=== PATIENT | male | born 1950 | race Caucasian/White ===

== ENCOUNTER 2019-11-28 01:39 | Outpatient (CLI) | payer MEDICARE, SELFPAY ==
[2019-11-28 17:56] LABS: SARS-CoV-2 RNA PCR Negative
== END 2019-11-28 01:40 | disposition home or self-care (01) ==
LOC: ANHCOVIDDT 01:40
PROVIDERS: PCP Internal Medicine; Visit Provider Internal Medicine Gastroenterology
DX: Z01.812 Encounter for preprocedural laboratory examination (principal); Z11.59 Encounter for screening for other viral diseases
CPT/HCPCS: 87635; C9803; U0003

== ENCOUNTER 2019-11-30 02:16 | Day surgery (SDC) | payer MEDICARE, SELFPAY ==
[2019-11-20 14:02] VITALS: BMI 32.5
[2019-11-30] MEDS: LACTATED RINGERS 1,000 ML 150 ML IV CONT (08:33)
[2019-11-30 08:34] VITALS: BP 145/91; PULSE 82; RESP 16; TEMP 36.3; O2SAT 99; BMI 31.7
--- NOTE | 2019-11-30 08:41 | P.CONGI_ITS ---
Assessment and Plan Assessment and plan (1) Encounter for screening for colorectal malignant neoplasm: Code(s): Z12.11 - Encounter for screening for malignant neoplasm of colon; Z12.12 - Encounter for screening for malignant neoplasm of rectum Status: Acute Assessment and Plan: Patient presents for screening colonoscopy. He appears to be at average risk. Last colonoscopy was 15 years ago. Plan is for screening colonoscopy today. (2) Dyspepsia: Code(s): R10.13 - Epigastric pain Status: Acute Assessment and Plan: Patient is epigastric pain consistent with dyspepsia. He has had inadequate response so far to pantoprazole. Plan is to proceed with EGD to evaluate more thoroughly. GI Consult Note Consult date/time: 11/30/19 08:41 HPI: Norman Staton is a 68 year old male Seen in evaluation at the request of Dr. Evangelista Carrasco. Patient complains of epigastric pain for several months. This is improved a little bit on taking pantoprazole but is not totally relieved. He also stop meloxicam which was taken for neck pain. He is not take this medicine for several weeks. Pain persists despite this med occasion. He denies any bleeding or weight loss. Food is nonspecifically aggravate or alleviate the discomfort. Patient presents for EGD to evaluate thoroughly today. Past medical history is significant for colonoscopy 15 years ago. Patient desires neoplasia screening. He did states his current weight appetite bowel movements are normal. Denies abdominal pain. He denies blood in his stools. His weight has remained stable. Family history is noncontributory. There is no family history of colon or rectal disease. Review of Systems Review of Systems: All systems reviewed & are unremarkable except as noted in HPI and below Meds Home Medications and Allergies Home Medications Medication Instructions Recorded Confirmed Type atorvastatin 20 mg PO DAILY 11/20/19 11/20/19 History Allergies Allergy/AdvReac Type Severity Reaction Status Date / Time No Known Allergies Allergy Unverified 09/27/18 09:39 Vital Signs Vital Signs - 24 hr 11/30/19 08:34 Temperature 97.3 F L Pulse Rate 82 Respiratory Rate 16 Blood Pressure 145/91 H Pulse Oximetry 99 Exam Narrative: Exam Narrative: Physical exam reveals the patient to be alert. Vital signs are stable. He is comfortable at rest. HEENT exam unremarkable. L ungs are clear to auscultation and percussion. Heart is without murmur or extra sounds. Abdominal exam bowel sounds are present soft nontender with no organomegaly. Digital external rectal exam is normal.
--- NOTE | 2019-11-30 09:05 | P.PNAN_ITS ---
Anes - Initial Pre Proc Eval Procedure: Operation Date: 11/30/19 09:00 Proposed Procedures p Screening Colonoscopy And Possible Esophagogastroduodenoscopy - Rk Rojas MD Date/Time: 11/30/19 09:05 Surgeon: Rk Rojas MD Pre Op Diagnosis: Neoplasm Screening, Dyspepsia Patient Data Age: 68 Gender: M Height: 6 ft 2 in Weight: 112.1 kg Last Vital Signs Temp 97.3 F L 11/30/19 08:34 Pulse 82 11/30/19 08:34 Resp 16 11/30/19 08:34 BP 145/91 H 11/30/19 08:34 Pulse Ox 99 11/30/19 08:34 Allergies Allergy/AdvReac Type Severity Reaction Status Date / Time No Known Allergies Allergy Unverified 09/27/18 09:39 Home Medications Medication Instructions Recorded Confirmed Type atorvastatin 20 mg PO DAILY 11/20/19 11/20/19 History Patient hx anesthesia problems: none Family hx anesthesia problems: none [facility] Past Medical History Medical History (Updated 11/30/19 @ 09:05 by Job Garcia MD) Arthritis Hyperlipidemia Anes - Eval Final PreProcedure Day of Procedure 11/30/19 09:05 Patient weight: overweight Heart: regular rate and rhythm Lungs: clear to auscultation Airway: Mallampati scale class II Neurological: alert and oriented Last oral intake: >/= 8 hours ASA classification: II Emergent: no Anesthetic plan: proceed Anesthesia type and monitoring: general GIVS and standard monitoring Informed Consent: The patient's anesthetic plan and its attendant risks and benefits were discussed with the patient/family/POA. Questions were solicited and answers provided to the satisfaction of the patient/family/POA.
[2019-11-30 09:50] VITALS: BP 97/54; PULSE 82; RESP 16; O2SAT 93
[2019-11-30 10:00] VITALS: BP 99/66; PULSE 60; RESP 16; O2SAT 93
[2019-11-30 10:10] VITALS: BP 108/61; PULSE 60; RESP 16; O2SAT 96
== END 2019-11-30 10:19 | disposition home or self-care (01) ==
PROVIDERS: PCP Internal Medicine; Visit Provider Internal Medicine Gastroenterology
PROC: 0DJ08ZZ Inspection of Upper Intestinal Tract, Via Natural or Artificial Opening Endoscopic (ICD-10-PCS; CPT 43235; principal; 2019-11-30 09:00)
DX: Z12.11 Encounter for screening for malignant neoplasm of colon (principal); K57.30 Diverticulosis of large intestine without perforation or abscess without bleeding; K64.8 Other hemorrhoids; K30 Functional dyspepsia; E78.5 Hyperlipidemia, unspecified
CPT/HCPCS: 43239; G0121; 87081; J2704; J7120

== ENCOUNTER 2020-08-27 08:11 | Emergency (ER) | payer MEDICARE, SELFPAY ==
[2020-08-27] VITALS (13 sets, daily range): BP systolic 125–157; BP diastolic 82–96; PULSE 61–68; RESP 11–18; TEMP 36.2–36.7; O2SAT 96–100
--- NOTE | ~2020-08-27 | CT_ITS ---
EXAMINATION: CT brain wo con DATE: 08/27/2020 09:47 INDICATION: Paresthesias TECHNIQUE: Computed tomography (CT) of the head was performed without intravenous contrast. The dose- length product was 605.33 mGy-cm. Automated exposure control and iterative reconstruction technique w ere employed. COMPARISON: None FINDINGS: Generalized atrophy. No acute intracranial hemorrhage, infarction, mass or mass effect. Bas ilar cisterns are patent. Normal avina-white differentiation. Paranasal sinuses and mastoids are pneum atized. No depressed skull fractures. IMPRESSION: 1. No acute intracranial abnormality. Reviewed, dictated and finalized at location B.
--- NOTE | 2020-08-27 08:47 | ECG_ITS ---
Measurements Intervals [place] Rate: 64 P: 39 NH: 146 QRS: 41 QRSD: 142 T: 4 QT: 425 QTc: 441 Interpretive Statements SINUS RHYTHM RIGHT BUNDLE BRANCH BLOCK BASELINE ARTIFACT- I, II, III, AVR, AVL,A VF ABNORMAL ECG Electronically Signed On 08-27-2020 8:53:06 CDT by Keyur Logan D.O.
[2020-08-27 09:30] LABS: Basophils Percent Auto 0.7 % (0.2-1.2); Eosinophils Absolute Auto 0.1 K/mm3 (0-0.3); Eosinophils Percent Auto 1.6 % (0-4.4); Hematocrit 44.8 % (42.0-52.0); Hemoglobin 15.2 g/dL (14.0-18.0); Immature Granulocyte Absolute 0.01 K/mm3 (0.00-0.031); Immature Granulocyte Percent A 0.2 % (0-0.5); Lymphocytes Absolute Auto 1.81 K/mm3 (0.9-3.2); Lymphocytes Percent Auto 32.8 % (18.3-44.2); Mean Corpuscular HGB Conc 33.9 g/dl (32-36); Mean Corpuscular Hemoglobin 33.2 pg (26-34); Mean Corpuscular Volume 97.8 fl (80-100); Mean Platelet Volume 11.1 fl (7.4-10.4); Monocytes Absolute Auto 0.5 K/mm3 (0.1-0.6); Monocytes Percent Auto 9.3 % (2.6-8.5); Neutrophils Absolute Auto 3.1 K/mm3 (1.3-6.7); Neutrophils Percent Auto 55.4 % (45.5-73.1); Platelet Count Result 227 k/mm3 (150-375); Red Blood Count 4.58 M/mm3 (4.6-6.20); Red Cell Distribution Width 12.2 % (11.5-14.5); White Blood Count 5.5 K/mm3 (4.5-10.0)
--- NOTE | 2020-08-27 09:33 | ED.GENADULT ---
HPI - General Adult General Chief complaint: Unspecified Stated complaint: TINGLING Time Seen by Provider: 08/27/20 09:11 Source: patient Mode of arrival: EMS Limitations: no limitations History of Present Illness HPI narrative: This is a 69 year old male that presents to the ER for an episode of paresthesias this morning. Reports around 7:00 he started to note tingling in his arms. Following that he felt like his legs were really weak. He was anxious and felt panicky. He told his he wanted to come to the emergency department. Reports a similar episode last week for which she was seen at another facility. Reports he had lab work and a chest x-ray that apparently was normal. Denies any symptoms currently. Reports he has been having intermittent dull pains on the right side of his upper chest. Denies fever, vision changes, shortness of breath, vomiting, numbness, or lower extremity edema. Related Data Home Medications Medication Instructions Recorded Confirmed No Home Medications 08/27/20 08/27/20 Allergies Allergy/AdvReac Type Severity Reaction Status Date / Time No Known Allergies Allergy Verified 08/27/20 08:16 Review of Systems Review of Systems: Narrative: CONSTITUTIONAL: Denies fever EYES: Denies visual changes CARDIOVASCULAR: Reports chest pain. Denies edema. RESPIRATORY: Denies cough or dyspnea. GASTROINTESTINAL: Denies abdominal pain, nausea, vomiting GENITOURINARY: Denies dysuria NEUROLOGIC: Reports weakness. Denies headache, numbness All systems reviewed & are unremarkable except as noted in HPI and below PMFSH Past Medical History Medical History (Updated 08/27/20 @ 14:30 by Valencia Gu PA-C) Arthritis History of gastroesophageal reflux (GERD) Hyperlipidemia Exam Narrative: Exam Narrative: GENERAL: Well-appearing, well-nourished, and in no acute distress. HEAD: Normocephalic, atraumatic. EYES: PERRLA and EOMI. ENT: Nares clear, no rhinorrhea or epistaxis. Mucous membranes moist. Oropharynx without tonsillar hypertrophy exudate or other lesions. Bilateral TMs pearly avina non-bulging NECK: Supple. No adenopathy or masses. CHEST: Clear to auscultation. No respiratory distress. No wheezes rales or rhonchi HEART: Regular rate and rhythm. No murmur heard. Normal peripheral pulses. EXTREMITIES: Normal range of motion. No edema. Strength equal in bilateral upper and lower extremities (5/5) SKIN: Warm, dry, no rash. NEURO: No focal deficits. Alert and oriented x3. Cranial nerves II through XII grossly intact. Normal [id number] PSYCH: Normal mood and affect Course Vital Signs Vital signs: Vital Signs Temperature 97.1 F L 08/27/20 08:11 Pulse Rate 68 08/27/20 08:11 Respiratory Rate 14 08/27/20 08:11 Blood Pressure 157/95 H 08/27/20 08:11 Pulse Oximetry 100 08/27/20 08:11 Temperature 97.1 F L 08/27/20 08:11 Pulse Rate 62 08/27/20 10:46 Respiratory Rate 15 08/27/20 10:46 Blood Pressure 130/82 08/27/20 10:46 Pulse Oximetry 96 08/27/20 10:46 Medical Decision Making MDM Narrative Medical decision making narrative: Patient presents to the emergency department for an episode that sounds consistent with likely an anxiety attack. Reports this morning he started to feel panicky. Reports paresthesias in his arms, also reports feeling of muscle cramping in his legs. Symptoms had resolved upon arrival to the ED. He is neurologically intact. His vitals are stable. CBC and metabolic panel without concerning findings. Magnesium is normal. TSH is normal. EKG shows a right bundle branch block, no acute ST changes. Baseline and 3-hour troponin are negative. CK is normal. UA without evidence of infection. CT scan of the brain is normal. Spoke with patient's primary about work-up will follow-up in clinic. Patient is stable and felt appropriate for further outpatient evaluation. He was given warnings to return to the ER I did offer patient admission for MRI
[2020-08-27 09:40] LABS: Alanine Aminotransferase 31 U/L (4-50); Albumin Level 4.4 g/dL (3.5-5.1); Alkaline Phosphatase 60 U/L (38-126); Anion Gap 7 mmol/L (8-16); Aspartate Amino Transferase 32 U/L (17-59); Bilirubin,Total 0.6 mg/dL (0.2-1.3); Blood Urea Nitrogen 18 mg/dL (9-20); Calcium 9.1 mg/dL (8.4-10.2); Carbon Dioxide 28 mmol/L (22-30); Chloride 105 mmol/L (98-107); Estimated CRCL calculation 92 ml/min; Estimated Glomerular Filt Rate > 60; Glucose 110 mg/dL (75-110); Magnesium 2.1 mg/dL (1.6-2.3); Potassium 4.1 mmol/L (3.4-5.0); Sodium 140 mmol/L (137-145)
--- NOTE | 2020-08-27 09:41 | PC.NURSE ---
called lab and spoke with carrol. Added on a TSH Reflex
[2020-08-27 10:07] LABS: Partial Thromboplastin Time 26.6 SECONDS (22.3-36.8); Prothrombin Time 13.6 Seconds (11.1-14.7)
[2020-08-27 10:13] LABS: Troponin I < 0.012 ng/mL (0.000-0.034)
[2020-08-27 12:50] LABS: Add Urine Microscopic? YES; Appearance Urine Cloudy (Clear); Bilirubin Urine Negative (Negative); Blood Urine Negative (Negative); Color Urine Yellow (Yellow); Glucose Urine UA Negative (Negative); Ketones Urine Negative (Negative); Leukocyte Esterase Ur Negative LEU/UL (Negative); Mucus Urine Rare /lpf; Nitrate Urine Negative (Negative); Protein Urine Negative (Negative); RBC Urine 0-2 /hpf (0-2); Specific Grav Ur 1.019 (1.001-1.035); Urobilinogen Urine Negative mg/dL (<2.0); WBC Urine 0-3 /hpf
[2020-08-27 12:54] LABS: Creatine Kinase 118 U/L (55-170)
[2020-08-27 14:13] LABS: Troponin I < 0.012 ng/mL (0.000-0.034)
== END 2020-08-27 14:44 | disposition home or self-care (01) ==
PROVIDERS: Physician Assistant; Emergency Provider Emergency Medicine; PCP Internal Medicine
DX: R20.2 Paresthesia of skin (principal); M19.90 Unspecified osteoarthritis, unspecified site; K21.9 Gastro-esophageal reflux disease without esophagitis; E78.5 Hyperlipidemia, unspecified; R07.9 Chest pain, unspecified; I45.10 Unspecified right bundle-branch block
CPT/HCPCS: 36415; 70450; 80053; 81001; 82550; 83735; 84443; 84484; 85025; 85610; 85730; 93005; 99284

== ENCOUNTER 2020-10-08 12:50 | Outpatient (CLI) | payer MEDICARE, SELFPAY ==
--- NOTE | 2020-10-08 12:58 | ECHO_ITS ---
Patient Info Name: Norman Staton Age: 69 years : 1950 Gender: Male Ht: 74 in Wt: 241 lbs BSA: 2.41 m2 HR: 79 bpm BP: 151 / 107 mmHg Technical Quality: Fair Exam Date: 10/08/2020 1:09 PM Exam Location: [facility] Patient Status: Outpatient Admit Date: 10/08/2020 Staff Ordering Physician: Keyur Logan DO Worship Director: GRACE Attending Provider: Keyur Logan DO Referring Physician: Desmond BENTLEY; Exam Type: CA echo doppler color flow Study Info Indications R07.9 - Chest pain, unspecified Complete two-dimensional, color flow and Doppler transthoracic echocardiogram is performed. Summary 1. Complete two-dimensional, color flow and Doppler transthoracic echocardiogram is performed. 2. Left ventricular chamber dimension is normal. 3. Left ventricular systolic function is normal, estimated at 60-65%. 4. The left ventricular diastolic function is grade I diastolic dysfunction. 5. E/e' 8 is minimally elevated. 6. No pulmonary hypertension, estimated pulmonary arterial systolic pressure is 30 mmHg. 7. The aortic root size at the sinus of Valsalva is borderline dilated at 4.0 cm. 8. The prox ascending aorta size is borderline dilated. at 4.1 cm. Left Ventricle E/e' 8 is minimally elevated. Left ventricular chamber dimension is normal. Left ventricular systolic function is normal, estimated at 60-65%. The left ventricular diastolic function is grade I diastolic dysfunction. Right Ventricle Right ventricular chamber dimension is normal. Right ventricular systolic function is normal. Left Atria Left atrial chamber dimension is normal. Right Atria Right atrial chamber dimension is normal. Aortic Valve The aortic valve is trileaflet. There is no aortic valve stenosis. There is no aortic valve regurgitation. Pulmonic Valve There is no pulmonic regurgitation. Mitral Valve There is no mitral valve stenosis. There is no mitral valve regurgitation. Tricuspid Valve There is no tricuspid valve regurgitation. No pulmonary hypertension, estimated pulmonary arterial systolic pressure is 30 mmHg. Pericardium/Pleural There is no pericardial effusion. Inferior Vena Cava Normal inferior vena cava with >50% collapse upon inspiration consistent with normal right atrial pressure, 5 mmHg. Aorta The aortic root size at the sinus of Valsalva is borderline dilated at 4.0 cm. The prox ascending aorta size is borderline dilated. at 4.1 cm. Left Ventricular Outflow Tract Name Value Normal LVOT 2D LVOT Diameter 2.6 cm LVOT Doppler LVOT Peak Gradient 3 mmHg LVOT Mean Gradient 2 mmHg LVOT VTI 20 cm LVOT VTI/AV VTI Ratio 0.8 LVOT Stroke Volume 107 ml LVOT CO 21.4 l/min LVOT CI 8.9 l/min/m2 Pulmonic Valve Name Value Normal
== END 2020-10-08 12:51 | disposition home or self-care (01) ==
PROVIDERS: PCP Internal Medicine; Visit Provider Internal Medicine Cardiovascular Disease
DX: R07.9 Chest pain, unspecified (principal)
CPT/HCPCS: 93306

== ENCOUNTER 2021-07-01 00:37 | Day surgery (SDC) | payer MEDICARE, SELFPAY ==
[2021-06-19 08:28] VITALS: BMI 31.4
[2021-07-01 08:39] VITALS: BP 129/103; PULSE 93; RESP 18; TEMP 36.2; O2SAT 100
[2021-07-01] MEDS: LACTATED RINGERS 1,000 ML 150 ML IV CONT (08:49)
--- NOTE | 2021-07-01 09:52 | WPDANESEPPF ---
Anes - Initial Pre Proc Eval Procedure: Operation Date: 07/01/21 10:00 Proposed Procedures p Flexible Sigmoidoscopy With Biopsy - Marko Boggs MD Date/Time: 07/01/21 09:52 Surgeon: Marko Boggs MD Pre Op Diagnosis: diarrhea Patient Data Age: 70 Gender: M Height: 1.88 m Weight: 108.8 kg Last Vital Signs Temp 97.1 F L 07/01/21 08:39 Pulse 93 07/01/21 08:39 Resp 18 07/01/21 08:39 BP 129/103 H 07/01/21 08:39 Pulse Ox 100 07/01/21 08:39 Allergies Allergy/AdvReac Type Severity Reaction Status Date / Time No Known Allergies Allergy Verified 07/01/21 08:38 Home Medications Medication Instructions Recorded Confirmed Type atorvastatin 20 mg tablet 20 mg PO DAILY 09/11/20 06/19/21 History cholecalciferol (vitamin D3) 50 50 mcg PO DAILY 09/11/20 06/19/21 History mcg (2,000 unit) tablet omega-3 fatty acids-fish oil 360 1 cap PO BID 09/11/20 06/19/21 History mg-1,200 mg capsule meloxicam 15 mg tablet 15 mg PO DAILY 03/18/21 06/19/21 History alprazolam 0.5 mg PO TID PRN 06/19/21 06/19/21 History mv,Ca,kdj-tgik-ZK-lycopene 1 tablet PO DAILY 06/19/21 06/19/21 History [Centrum Men] psyllium husk [Metamucil] 0.52 g PO DAILY 06/19/21 06/19/21 History Patient hx anesthesia problems: none Family hx anesthesia problems: none Results Review: All pre-operative results and documents have been reviewed as part of the pre-operative evaluation. [facility] Past Medical History Medical History Anxiety Arthritis Cervical radiculopathy at C7 Colon, diverticulosis History of gastroesophageal reflux (GERD) History of MRSA infection Hyperlipidemia Impingement syndrome, shoulder, left Irritable bowel syndrome with diarrhea Kidney stones Weight loss Surgical History Surgical History History of cholecystectomy Family History Family History Other High cholesterol Hypertension Social History Social History (Updated 05/15/21 @ 10:36 by Lesley Mack CMA) Smoking status: Former smoker Tobacco type: cigars Alcohol intake: current Drinks per week: 2 Alcohol use details: 1 drink every 2-3 weeks Living arrangements: with family Gender identity (if verbalized by the patient): Male Spiritual care concerns: No Anes - Eval Final PreProcedure Day of Procedure 07/01/21 09:52 Patient weight: obese Heart: regular rate and rhythm Lungs: clear to auscultation Airway: Mallampati scale class II Neurological: alert and oriented Last oral intake: >/= 8 hours ASA classification: II Emergent: no Anesthetic plan: proceed Anesthesia type and monitoring: general GIVS and standard monitoring Results Review: All pre-operative results and documents have been reviewed as part of the pre-operative evaluation. Informed Consent: The patient's anesthetic plan and its attendant risks and benefits were discussed with the patient/family/POA. Questions were solicited and answers provided to the satisfaction of the patient/family/POA.
--- NOTE | 2021-07-01 10:05 | PM.HPGS ---
History of Present Illness History of Present Illness Consent: Risks, benefits, and alternatives have been discussed and questions answered. Patient agrees to proceed with procedure. Chief complaint: diarrhea Narrative: Norman Staton is a 70 year old male with diarrhea, questran did not help (post cholecystectomy) but using antidiarrheal OTC that is helping, had colonoscopy 2019 but did not have random colon biopsies. Work up otherwise negative. Review of Systems Constitutional: Constitutional: Denies headache(s) and Denies weakness Eyes: Eyes: Denies blurry vision ENT: Reports Normal hearing present, Denies headache(s) and Denies neck pain Cardiovascular: Cardiovascular: Denies chest pain and Denies dyspnea Respiratory: Respiratory: Denies dyspnea Gastrointestinal: Gastrointestinal: Reports no additional gastrointestinal complaints Genitourinary: Genitourinary: Denies dysuria Musculoskeletal: Musculoskeletal: Denies neck pain Integumentary/Breasts: Skin/Breast: Denies dry skin Neurologic: Reports Normal hearing present, Denies headache(s) and Denies weakness Psychiatric: Psychiatric: Denies anxiety Endocrine: Endocrine: Denies change in body appearance Hematologic/Lymphatic: Hematologic/Lymphatic: Denies easy bleeding Allergic/Immunologic: Allergic/Immunologic: Denies urticaria [facility] Past Medical History Medical History Anxiety Arthritis Cervical radiculopathy at C7 Colon, diverticulosis History of gastroesophageal reflux (GERD) History of MRSA infection Hyperlipidemia Impingement syndrome, shoulder, left Irritable bowel syndrome with diarrhea Kidney stones Weight loss Surgical History Surgical History History of cholecystectomy Family History Family History Other High cholesterol Hypertension Social History Social History (Updated 05/15/21 @ 10:36 by Lesley Mack CMA) Smoking status: Former smoker Tobacco type: cigars Alcohol intake: current Drinks per week: 2 Alcohol use details: 1 drink every 2-3 weeks Living arrangements: with family Gender identity (if verbalized by the patient): Male Spiritual care concerns: No Meds Home Medications and Allergies Home Medications Medication Instructions Recorded Confirmed Type atorvastatin 20 mg tablet 20 mg PO DAILY 09/11/20 06/19/21 History cholecalciferol (vitamin D3) 50 50 mcg PO DAILY 09/11/20 06/19/21 History mcg (2,000 unit) tablet omega-3 fatty acids-fish oil 360 1 cap PO BID 09/11/20 06/19/21 History mg-1,200 mg capsule meloxicam 15 mg tablet 15 mg PO DAILY 03/18/21 06/19/21 History alprazolam 0.5 mg PO TID PRN 06/19/21 06/19/21 History mv,Ca,hci-usez-KK-lycopene 1 tablet PO DAILY 06/19/21 06/19/21 History [Centrum Men] psyllium husk [Metamucil] 0.52 g PO DAILY 06/19/21 06/19/21 History Allergies Allergy/AdvReac Type Severity Reaction Status Date / Time No Known Allergies Allergy Verified 07/01/21 08:38 Vital Signs Vital Signs - 24 hr 07/01/21 08:39 Temperature 97.1 F L Pulse Rate 93 Respiratory Rate 18 Blood Pressure 129/103 H Pulse Oximetry 100 Exam Const: General: comfortable and no acute distress HENMT: General nose exam: Normal nares present Eyes: General: appearance normal, both eyes and all related structures Neck: Neck: no JVD Resp: Auscultation: clear to auscultation bilaterally Cardio: Rate: regular rate Rhythm: regular rhythm GI: Inspection: non-distended GI Palp: Yes Soft to palpation Skin: General skin exam: normal color Neuro: General: gait normal Speech: normal speech Extrem: General: normal to inspection Psych: Mental Status: mental status grossly normal Assessment and Plan Assessment and plan (1) Irritable bowel syndrome with diarrhea: C
[2021-07-01 10:23] VITALS: BP 96/68; PULSE 64; RESP 22; O2SAT 91
[2021-07-01 10:33] VITALS: BP 111/72; PULSE 98; RESP 23; O2SAT 94
[2021-07-01 10:43] VITALS: BP 114/75; PULSE 62; RESP 25; O2SAT 100
== END 2021-07-01 10:56 | disposition home or self-care (01) ==
PROVIDERS: PCP Internal Medicine; Visit Provider Internal Medicine Gastroenterology
PROC: 0DJD8ZZ Inspection of Lower Intestinal Tract, Via Natural or Artificial Opening Endoscopic (ICD-10-PCS; CPT 45330; principal; 2021-07-01 10:00)
DX: K51.90 Ulcerative colitis, unspecified, without complications (principal); K64.8 Other hemorrhoids; K57.30 Diverticulosis of large intestine without perforation or abscess without bleeding; Z90.49 Acquired absence of other specified parts of digestive tract; F41.9 Anxiety disorder, unspecified; M54.12 Radiculopathy, cervical region; K21.9 Gastro-esophageal reflux disease without esophagitis; E78.5 Hyperlipidemia, unspecified; Z87.891 Personal history of nicotine dependence; E66.9 Obesity, unspecified; Z68.30 Body mass index [BMI] 30.0-30.9, adult
CPT/HCPCS: 45331; 88305; J2704; J7120

== ENCOUNTER 2022-02-16 01:44 | Day surgery (SDC) | payer MEDICARE, SELFPAY ==
[2022-01-30 11:59] VITALS: BMI 31.1
--- NOTE | 2022-02-16 08:40 | WPDANESEPPF ---
Anes - Initial Pre Proc Eval Procedure: Operation Date: 02/16/22 10:45 Proposed Procedures p Esophagogastroduodenoscopy - Marko Boggs MD Date/Time: 02/16/22 08:40 Surgeon: Marko Boggs MD Pre Op Diagnosis: epigastric pain Patient Data Age: 71 Gender: M Height: 1.88 m Weight: 110 kg Allergies Allergy/AdvReac Type Severity Reaction Status Date / Time celecoxib [From Celebrex] Allergy Unknown Unknown Verified 02/16/22 09:44 Home Medications Medication Instructions Recorded Confirmed Type cholecalciferol (vitamin D3) 50 50 mcg PO DAILY 09/11/20 01/30/22 History mcg (2,000 unit) tablet omega-3 fatty acids-fish oil 360 1 cap PO BID 09/11/20 01/30/22 History mg-1,200 mg capsule (Fish Oil) multivit,Ca,min-iron 8 mg-folic 1 tablet PO DAILY 06/19/21 01/30/22 History acid 200 mcg-lycopene 600 mcg tablet (Centrum Men) alprazolam 0.5 mg tablet 0.5 mg PO TID PRN Anxiety #90 tabs 12/17/21 01/30/22 Rx omeprazole 40 mg capsule,delayed 40 mg PO DAILY #30 caps 01/01/22 01/30/22 Rx release atorvastatin 20 mg tablet 20 mg PO DAILY #90 tabs 01/02/22 01/30/22 Rx lactobacillus combination no.8 3 1 cell DAILY 01/30/22 01/30/22 History billion cell capsule sulfasalazine 500 mg tablet 0.5 g PO BID 01/30/22 01/30/22 History Patient hx anesthesia problems: none Family hx anesthesia problems: none Results Review: All pre-operative results and documents have been reviewed as part of the pre-operative evaluation. [facility] Past Medical History Medical History (Updated 01/01/22 @ 09:04 by Marko Boggs MD) Anxiety Arthritis Cervical radiculopathy at C7 Chronic diarrhea Colon, diverticulosis Epigastric pain History of gastroesophageal reflux (GERD) History of MRSA infection Hyperlipidemia Impingement syndrome, shoulder, left Irritable bowel syndrome with diarrhea Kidney stones Left sided colitis NSAID long-term use Weight loss Surgical History Surgical History History of cholecystectomy Family History Family History Other High cholesterol Hypertension Social History Social History (Updated 02/16/22 @ 09:59 by Kaden Maciel DO) Years smoked: 10 Smoking status: Former smoker Tobacco type: cigars Alcohol intake: current Drinks per week: 2 Alcohol use details: 1 drink every 2-3 weeks Living arrangements: with family Gender identity (if verbalized by the patient): Male Spiritual care concerns: No Anes - Eval Final PreProcedure Day of Procedure 02/16/22 08:40 Patient weight: obese Heart: regular rate and rhythm Lungs: clear to auscultation Airway: Mallampati scale class II Neurological: alert and oriented Last oral intake: >/= 8 hours ASA classification: II Emergent: no Anesthetic plan: proceed Anesthesia type and monitoring: general GIVS and standard monitoring Results Review: All pre-operative results and documents have been reviewed as part of the pre-operative evaluation. Informed Consent: The patient's anesthetic plan and its attendant risks and benefits were discussed with the patient/family/POA. Questions were solicited and answers provided to the satisfaction of the patient/family/POA.
[2022-02-16 09:45] VITALS: BP 153/100; PULSE 84; RESP 18; TEMP 36.6; O2SAT 99
[2022-02-16] MEDS: LACTATED RINGERS 1,000 ML 150 ML IV CONT (09:53)
--- NOTE | 2022-02-16 09:55 | SUR.PREOP ---
DR GARCIA MADE AWARE PT'S BLOOD PRESSURE 153/100, NO NEW ORDERS.
--- NOTE | 2022-02-16 09:58 | PM.HPGS ---
History of Present Illness History of Present Illness Consent: Risks, benefits, and alternatives have been discussed and questions answered. Patient agrees to proceed with procedure. Chief complaint: epigastric pain Narrative: Norman Staton is a 71 year old male with intermittent epigastric pain on ppi, not longer using meloxicam Review of Systems Constitutional: Constitutional: Denies headache(s) and Denies weakness Eyes: Eyes: Denies blurry vision ENT: Reports Normal hearing present, Denies headache(s) and Denies neck pain Cardiovascular: Cardiovascular: Denies chest pain and Denies dyspnea Respiratory: Respiratory: Denies dyspnea Gastrointestinal: Gastrointestinal: Reports no additional gastrointestinal complaints Genitourinary: Genitourinary: Denies dysuria Musculoskeletal: Musculoskeletal: Denies neck pain Integumentary/Breasts: Skin/Breast: Denies dry skin Neurologic: Reports Normal hearing present, Denies headache(s) and Denies weakness Psychiatric: Psychiatric: Denies anxiety Endocrine: Endocrine: Denies change in body appearance Hematologic/Lymphatic: Hematologic/Lymphatic: Denies easy bleeding Allergic/Immunologic: Allergic/Immunologic: Denies urticaria PMFSH Past Medical History Medical History (Updated 01/01/22 @ 09:04 by Marko Boggs MD) Anxiety Arthritis Cervical radiculopathy at C7 Chronic diarrhea Colon, diverticulosis Epigastric pain History of gastroesophageal reflux (GERD) History of MRSA infection Hyperlipidemia Impingement syndrome, shoulder, left Irritable bowel syndrome with diarrhea Kidney stones Left sided colitis NSAID long-term use Weight loss Surgical History Surgical History History of cholecystectomy Family History Family History Other High cholesterol Hypertension Social History Social History Years smoked: 10 Smoking status: Never smoker Tobacco type: cigars Alcohol intake: current Drinks per week: 2 Alcohol use details: 1 drink every 2-3 weeks Living arrangements: with family Gender identity (if verbalized by the patient): Male Spiritual care concerns: No Meds Home Medications and Allergies Home Medications Medication Instructions Recorded Confirmed Type cholecalciferol (vitamin D3) 50 50 mcg PO DAILY 09/11/20 01/30/22 History mcg (2,000 unit) tablet omega-3 fatty acids-fish oil 360 1 cap PO BID 09/11/20 01/30/22 History mg-1,200 mg capsule (Fish Oil) multivit,Ca,min-iron 8 mg-folic 1 tablet PO DAILY 06/19/21 01/30/22 History acid 200 mcg-lycopene 600 mcg tablet (Centrum Men) alprazolam 0.5 mg tablet 0.5 mg PO TID PRN Anxiety #90 tabs 12/17/21 01/30/22 Rx omeprazole 40 mg capsule,delayed 40 mg PO DAILY #30 caps 01/01/22 01/30/22 Rx release atorvastatin 20 mg tablet 20 mg PO DAILY #90 tabs 01/02/22 01/30/22 Rx lactobacillus combination no.8 3 1 cell DAILY 01/30/22 01/30/22 History billion cell capsule sulfasalazine 500 mg tablet 0.5 g PO BID 01/30/22 01/30/22 History Allergies Allergy/AdvReac Type Severity Reaction Status Date / Time celecoxib [From Celebrex] Allergy Unknown Unknown Verified 02/16/22 09:44 Vital Signs Vital Signs - 24 hr 02/16/22 09:45 Temperature 97.8 F Pulse Rate 84 Respiratory Rate 18 Blood Pressure 153/100 H Pulse Oximetry 99 Oxygen Delivery Room Air Exam Const: General: comfortable and no acute distress HENMT: Face/Nose/Sinus: Normal nares present Eyes: General: appearance normal, both eyes and all related structures Neck: Neck: no JVD Resp: Auscultation: clear to auscultation bilaterally Cardio: Rate: regular rate Rhythm: regular rhythm GI: Inspection: non-distended GI Palp: Yes Soft to palpation Skin: General skin exam: normal color Neuro:
[2022-02-16 10:10] VITALS: BP 121/83; PULSE 68; RESP 15; O2SAT 95
[2022-02-16 10:20] VITALS: BP 127/66; PULSE 68; RESP 17; O2SAT 93
[2022-02-16 10:30] VITALS: BP 125/83; PULSE 60; RESP 13; O2SAT 99
== END 2022-02-16 10:41 | disposition home or self-care (01) ==
PROVIDERS: PCP Physician Assistant Medical; Visit Provider Internal Medicine Gastroenterology
PROC: 0DJ08ZZ Inspection of Upper Intestinal Tract, Via Natural or Artificial Opening Endoscopic (ICD-10-PCS; CPT 43235; principal; 2022-02-16 10:45)
DX: R10.13 Epigastric pain (principal); K29.50 Unspecified chronic gastritis without bleeding; F41.9 Anxiety disorder, unspecified; M19.90 Unspecified osteoarthritis, unspecified site; K21.9 Gastro-esophageal reflux disease without esophagitis; E78.5 Hyperlipidemia, unspecified; K58.0 Irritable bowel syndrome with diarrhea; Z90.49 Acquired absence of other specified parts of digestive tract; E66.9 Obesity, unspecified; Z68.31 Body mass index [BMI] 31.0-31.9, adult; Z87.891 Personal history of nicotine dependence
CPT/HCPCS: 43239; 88305; J2704; J7120

== ENCOUNTER 2022-08-18 00:31 | Day surgery (SDC) | payer MEDICARE, SELFPAY ==
[2022-08-06 11:33] VITALS: BMI 31.4
--- NOTE | 2022-08-17 13:19 | WPDANESEPPF ---
Anes - Initial Pre Proc Eval Procedure: Operation Date: 08/18/22 10:00 Proposed Procedures p Colonoscopy - Marko Boggs MD Date/Time: 08/17/22 13:19 Surgeon: Marko Boggs MD Pre Op Diagnosis: Left sided Colitis without complications Patient Data Age: 71 Gender: M Height: 1.88 m Weight: 110.9 kg Allergies Allergy/AdvReac Type Severity Reaction Status Date / Time celecoxib [From Celebrex] Allergy Unknown Unknown Verified 08/18/22 08:36 Home Medications Medication Instructions Recorded Confirmed Type cholecalciferol (vitamin D3) 50 50 mcg PO DAILY 09/11/20 08/06/22 History mcg (2,000 unit) tablet omega-3 fatty acids-fish oil 360 1 cap PO BID 09/11/20 08/06/22 History mg-1,200 mg capsule (Fish Oil) multivit,Ca,min-iron 8 mg-folic 1 tablet PO DAILY 06/19/21 08/06/22 History acid 200 mcg-lycopene 600 mcg tablet (Centrum Men) sulfasalazine 500 mg tablet See Rx Instructions .Route 04/29/22 08/06/22 Rx .COMPLEX #120 tabs dicyclomine 10 mg capsule 10 mg PO BID PRN cramping #30 caps 05/15/22 08/06/22 Rx atorvastatin 20 mg tablet 20 mg PO DAILY #90 tabs 06/12/22 08/06/22 Rx omeprazole 40 mg capsule,delayed See Rx Instructions .Route 06/19/22 08/06/22 Rx release .COMPLEX #30 caps alprazolam 0.5 mg tablet 0.5 mg PO TID PRN Anxiety #90 tabs 07/10/22 08/06/22 Rx Patient hx anesthesia problems: none Family hx anesthesia problems: none Results Review: All pre-operative results and documents have been reviewed as part of the pre-operative evaluation. [facility] Past Medical History Medical History (Updated 08/17/22 @ 13:19 by Kaden Maciel DO) Anxiety Arthritis Cervical radiculopathy at C7 Chronic diarrhea Colon, diverticulosis Epigastric pain Gas bloat syndrome GERD (gastroesophageal reflux disease) History of gastroesophageal reflux (GERD) History of MRSA infection Hyperlipidemia Impingement syndrome, shoulder, left Irritable bowel syndrome with diarrhea Kidney stones Left sided colitis NSAID long-term use Weight loss Surgical History Surgical History History of cholecystectomy 10/2006 Family History Family History Father , ELECTRICUTED No problems noted. Mother No problems noted. Sibling Asthma Sibling Hypertension Other High cholesterol Social History Social History Years smoked: 10 Smoking status: Former smoker Tobacco type: cigars Alcohol intake: current Drinks per week: 2 Alcohol use details: 1 drink every 2-3 weeks Substance use: never Substance use type: does not use Lack of Transportation: No Lack of Food: Never True Current Housing: I Have Housing Concerned About Future Housing: No Difficulty Paying Gas/Electric Bills: No Difficulty Paying for Meds: No Currently Unemployed: No Education: Decline to Answer Living arrangements: with family Occupation/Education: retired Gender identity (if verbalized by the patient): Male Sexual Orientation (if Verbalized by the Patient): Straight or Heterosexual Spiritual care concerns: No Anes - Eval Final PreProcedure Day of Procedure 08/17/22 13:19 Patient weight: obese Heart: regular rate and rhythm Lungs: clear to auscultation Airway: Mallampati scale class II Neurological: alert and oriented Last oral intake: >/= 8 hours ASA classification: II Emergent: no Anesthetic plan: proceed Anesthesia type and monitoring: general GIVS and standard monitoring Results Review: All pre-operative results and documents have been reviewed as part of the pre-operative evaluation. Informed Consent: The patient's anesthetic plan and its attendant risks and benefits were discussed with the patient/family/POA. Questions were solicited and answers provided to th
[2022-08-18 08:37] VITALS: BP 130/95; PULSE 92; RESP 20; TEMP 36.6; O2SAT 98; BMI 31.4
[2022-08-18] MEDS: LACTATED RINGERS 1,000 ML 150 ML IV CONT (08:46)
--- NOTE | 2022-08-18 09:37 | PM.HPGS ---
History of Present Illness History of Present Illness Consent: Risks, benefits, and alternatives have been discussed and questions answered. Patient agrees to proceed with procedure. Chief complaint: Left sided Colitis without complications Narrative: Norman Staton is a 71 year old male here to reassess,had a colonoscopy 07/2021 that showed moderate left sided colitis (indefinite for dysplasia). Doing well with mesalamine. Review of Systems Constitutional: Constitutional: Denies headache(s) and Denies weakness Eyes: Eyes: Denies blurry vision ENT: Reports Normal hearing present, Denies headache(s) and Denies neck pain Cardiovascular: Cardiovascular: Denies chest pain and Denies dyspnea Respiratory: Respiratory: Denies dyspnea Gastrointestinal: Gastrointestinal: Reports no additional gastrointestinal complaints Genitourinary: Genitourinary: Denies dysuria Musculoskeletal: Musculoskeletal: Denies neck pain Integumentary/Breasts: Skin/Breast: Denies dry skin Neurologic: Reports Normal hearing present, Denies headache(s) and Denies weakness Psychiatric: Psychiatric: Denies anxiety Endocrine: Endocrine: Denies change in body appearance Hematologic/Lymphatic: Hematologic/Lymphatic: Denies easy bleeding Allergic/Immunologic: Allergic/Immunologic: Denies urticaria PMFSH Past Medical History Medical History (Updated 08/17/22 @ 13:19 by Kaden Maciel, ) Anxiety Arthritis Cervical radiculopathy at C7 Chronic diarrhea Colon, diverticulosis Epigastric pain Gas bloat syndrome GERD (gastroesophageal reflux disease) History of gastroesophageal reflux (GERD) History of MRSA infection Hyperlipidemia Impingement syndrome, shoulder, left Irritable bowel syndrome with diarrhea Kidney stones Left sided colitis NSAID long-term use Weight loss Surgical History Surgical History History of cholecystectomy 10/2006 Family History Family History Father , ELECTRICUTED No problems noted. Mother No problems noted. Sibling Asthma Sibling Hypertension Other High cholesterol Social History Social History Years smoked: 10 Smoking status: Former smoker Tobacco type: cigars Alcohol intake: current Drinks per week: 2 Alcohol use details: 1 drink every 2-3 weeks Substance use: never Substance use type: does not use Lack of Transportation: No Lack of Food: Never True Current Housing: I Have Housing Concerned About Future Housing: No Difficulty Paying Gas/Electric Bills: No Difficulty Paying for Meds: No Currently Unemployed: No Education: Decline to Answer Living arrangements: with family Occupation/Education: retired Gender identity (if verbalized by the patient): Male Sexual Orientation (if Verbalized by the Patient): Straight or Heterosexual Spiritual care concerns: No Meds Home Medications and Allergies Home Medications Medication Instructions Recorded Confirmed Type cholecalciferol (vitamin D3) 50 50 mcg PO DAILY 09/11/20 08/06/22 History mcg (2,000 unit) tablet omega-3 fatty acids-fish oil 360 1 cap PO BID 09/11/20 08/06/22 History mg-1,200 mg capsule (Fish Oil) multivit,Ca,min-iron 8 mg-folic 1 tablet PO DAILY 06/19/21 08/06/22 History acid 200 mcg-lycopene 600 mcg tablet (Centrum Men) sulfasalazine 500 mg tablet See Rx Instructions .Route 04/29/22 08/06/22 Rx .COMPLEX #120 tabs dicyclomine 10 mg capsule 10 mg PO BID PRN cramping #30 caps 05/15/22 08/06/22 Rx atorvastatin 20 mg tablet 20 mg PO DAILY #90 tabs 06/12/22 08/06/22 Rx omeprazole 40 mg capsule,delayed See Rx Instructions .Route 06/19/22 08/06/22 Rx release .COMPLEX #30 caps alprazolam 0.5 mg tablet 0.5 mg PO TID PRN Anxiety #90 tabs 07/10/22 08/06/22 Rx Allergies Allergy/Adv
[2022-08-18 10:05] VITALS: BP 104/69; PULSE 69; RESP 16; O2SAT 98
[2022-08-18 10:15] VITALS: BP 103/68; PULSE 68; RESP 16; O2SAT 93
[2022-08-18 10:25] VITALS: BP 110/72; PULSE 74; RESP 18; O2SAT 93
== END 2022-08-18 10:30 | disposition home or self-care (01) ==
PROVIDERS: PCP Physician Assistant Medical; Visit Provider Internal Medicine Gastroenterology
PROC: 0DJD8ZZ Inspection of Lower Intestinal Tract, Via Natural or Artificial Opening Endoscopic (ICD-10-PCS; CPT 45378; principal; 2022-08-18 10:00)
DX: K51.50 Left sided colitis without complications (principal); K63.5 Polyp of colon; K57.30 Diverticulosis of large intestine without perforation or abscess without bleeding; K64.8 Other hemorrhoids; K21.9 Gastro-esophageal reflux disease without esophagitis; E78.5 Hyperlipidemia, unspecified; F41.9 Anxiety disorder, unspecified; Z87.891 Personal history of nicotine dependence; E66.9 Obesity, unspecified; Z68.31 Body mass index [BMI] 31.0-31.9, adult
CPT/HCPCS: 45385; 45380; 88305; J2704; J7120

== ENCOUNTER 2022-12-18 09:30 | Outpatient (RCR) | payer MEDICARE, SELFPAY ==
--- NOTE | 2022-11-25 08:52 | PTOPEVAL1 ---
Assessment and note entered by An Deleon, PT Evaluation Information Assessment Status Evaluation Diagnosis low back pain Onset 10/2022 Subjective Information Has had pain in since about October 20, 2022. Was given medication and this didn't correct issue like usual. Got an x-ray and found mild arthritis. Started right along belt line Reports pain comes and goes, no there all the time . Bothers most with sitting in a straight chair and with bending forward. Is able to golf and mow Reported Pain Level Pain Score 0: Self Report Assessment PT Clinical Summary Pt presents with complaints of back pain that has persisted approx a month, reports positive x-ray findings of mild arthritis. Evaluation shows RLE length > LLE length ~1/2 inches, decreased lumbar ROM and intervertebral motion, decreased LE flexibility, and mildly decreased core strength overall. Pt will benefit from therapy to address deficits, improve discomfort, and return to prior level of pain-free function Plan of Care Interventions Check Out for Orthotic/Pr,Electrical Stimulation, Hot Pack/Cold Pack,Manual Therapy,Mechanical Traction,Neuro Re-education,Prosthetic Training, Therapeutic Activities,Therapeutic Exercise, Ultrasound PT Services Indicated Yes Treatment Frequency and 2x weekly x 4 weeks Duration These treatments will address the objective and functional deficits as defined above. The patient will be advanced safely and appropriately in order for the patient to progress towards his/her prior level of function. Additional exercises will be introduced and as well as a comprehensive home exercise program upon discharge, if needed, ?to ensure carryover of functional gains achieved in the clinic. This treatment plan has been reviewed and agreement upon by the patient.
--- NOTE | 2022-11-25 08:53 | OPREHPOC ---
Outpatient Therapy Plan of Care This is a Multidisciplinary Plan of Care that may contain components documented by all disciplines (PT, OT, and ST.) PT Goal 1 Goal Pt will be independent in HEP Target Visit 8 PT Goal 2 Goal Pt will verbalize understanding of diagnosis and prognosis Target Visit 8 PT Problem 2 PT Problem #2 Impaired Strength PT Goal 1 Goal Pt will demo strength of 4+/5 in all tested planes Target Visit 16 PT Problem 3 PT Problem #3 Pain PT Goal 1 Goal Pt will report greatest pain level at 3/10 Target Visit 8 PT Goal 2 Goal Pt will report resolution of pain Target Visit 16 PT Problem 4 PT Problem #4 Impaired Range of Motion PT Goal 1 Goal Pt will report ROM in lumbar spine of greater than 75% in all planes Target Visit 12 PT Goal 2 Goal Pt will show improved flexibility of LEs to decrease stress on lumbar spine Target Visit 12
--- NOTE | 2022-12-18 11:37 | PTOPDC ---
Assessment and note entered by An Deleon, PT Assessment Status Discharge Diagnosis low back pain Onset 10/2022 Subjective Information Self-percreived:65-70% improved Still feels a pull when leaning over the sink. Once in a while will have a twinge. Accept for golf shoe heel lift is doing well. Was able to golf 18 holes without pain. HEP as much as I can, but some days forget . Reported Pain Level Pain Score 0: Self Report Assessment PT Clinical Summary Pt reports feeling 65-70% improved overall. Still has pulling in back with leaning over sink but has not way to modify this such as bending at knees and hips. Pt reports suggested he is somewhat consistent with exercises, and appears to understand proactive measure to prevent pain with higher level sof activities. He demo's improved ROM and strength overall and has met most of his therapy goals. Pt's HEP was updated and he was educated on when to return to therapy if is needed . Thus patient is being discharged at this time due to his being happy with his progress.
== END 2022-12-18 11:45 | disposition home or self-care (01) ==
LOC: ANHHIPT 09:30
PROVIDERS: PCP Physician Assistant Medical; Visit Provider Physician Assistant Medical
DX: M54.50 Low back pain, unspecified (principal)
CPT/HCPCS: 97110; 97161; 97530; 97750

== ENCOUNTER 2023-03-12 08:00 | Outpatient (RCR) | payer MEDICARE, SELFPAY ==
--- NOTE | 2023-02-11 17:04 | PTOPEVAL1 ---
Assessment and note entered by An Deleon, PT Assessment Status Evaluation Diagnosis pain in left shoulder Onset a few years Therapy conditions abnormal postures, weakness Subjective Information Has had a CT with dye and they thought he had a small tear. Saw orthopeadist a few years ago, got a steroid shot and that was it. This was few years ago but is still bothering him. Sometimes will go weeks without bothering him, then sometimes will has burning. Pain will go into upper arm but not to elbow or beyond. Also seems to have tingling in arms and thinks has sometimng in the neck. Was sent to pain management for this. Got an MRI then the doctor gave him shots in the neck and this didn't seem to help. Tingling in hand will be in the fingers. Reported Pain Level Pain Score 0: Self Report Assessment PT Clinical Summary Pt reports pain in left shoulder that is on and off. Has prior diagnosis of rotator cuff tear, saw ortho and recieved a shot a few years ago but continues to have pain. Pt demo's abnormal postures likely causing impingement and irritation of shoulder however special tests and subjective reports suggest possible labral impairment. Pt also has history of cervical issues, also demonstrating decreased lateral flexion bilat, and radicular symptoms however these tests do not reproduce shoulder discomfort. Pt will benefit from therapy to address abnormal postures, strength, and knowledge to decreased discomfort and improve daily life without flare ups of pain. Plan of Care Interventions Electrical Stimulation,Manual Therapy,Mechanical Traction,Patient/Caregiver Educati,Therapeutic Activities,Therapeutic Exercise,Self-Care/Home Management,Ultrasound PT Services Indicated Yes Treatment Frequency and 1-2x weekly x 4-6 weeks Duration These treatments will address the objective and functional deficits as defined above. The patient will be advanced safely and appropriately in order for the patient to progress towards his/her prior level of function. Additional exercises will be introduced and as well as a comprehensive home exercise program upon discharge, if needed, ?to ensure carryover of functional gains achieved in the clinic. This treatment plan has been reviewed and agreement upon by the patient.
--- NOTE | 2023-02-11 17:04 | OPREHPOC ---
Outpatient Therapy Plan of Care This is a Multidisciplinary Plan of Care that may contain components documented by all disciplines (PT, OT, and ST.) PT Problem 1 PT Problem #1 Knowledge Deficit PT Goal 1 Goal Pt will be independent in HEP Pt will verbalize understanding of diagnosis and prognosis Target Visit 8 PT Problem 2 PT Problem #2 Pain PT Goal 1 Goal Pt will report greatest pain level at 3/10 or less to show improvement in healing Target Visit 8 PT Goal 2 Goal Pt will report resolution of pain to return to PLOF Target Visit 16 PT Problem 3 PT Problem #3 Impaired Endurance PT Goal 1 Goal Pt will demo ability to maintain appropriate posture throughout entire therapy session with 50% cueing or less Target Visit 8 PT Goal 2 Goal Pt will demo ability to maintain appropriate posture throughout entire therapy session without cueing. Target Visit 16
--- NOTE | 2023-03-05 13:25 | PCPTNOTE ---
The patient treatment was not able to be completed on 03/03/23 due to staffing shortage. Will plan to continue treatment per plan of care.
--- NOTE | 2023-03-12 08:30 | PTOPDC ---
Assessment and note entered by An Deleon, PT Assessment Status Discharge Diagnosis pain in left shoulder Onset a few years Subjective Information Pt reports has not had pain in a few weeks. States when he did have pain last, was able to take Tylenol and pain resolved, then never returned. Still has tingling in fingers but thinks is related to his neck. Can still do activities such as golfing without pain. Reported Pain Level Pain Score 0: Self Report Assessment PT Clinical Summary Pt has attended therapy consistently, is independent in home exercises and has met all his therapy goals for current shoulder issue. Thus patient is being discharged from therapy at this time.
== END 2023-03-12 09:16 | disposition home or self-care (01) ==
LOC: ANHHIPT 08:00
PROVIDERS: PCP Physician Assistant Medical; Visit Provider Physician Assistant Medical
DX: M25.512 Pain in left shoulder (principal)
CPT/HCPCS: 97014; 97110; 97112; 97162; 97750; G0283

== ENCOUNTER 2024-02-11 10:02 | Outpatient (CLI) | payer MEDICARE, SELFPAY ==
[2024-02-11 10:14] LABS: Hematocrit 41.1 % (42.0-52.0); Hemoglobin 14.1 g/dL (14.0-18.0); Mean Corpuscular HGB Conc 34.3 g/dl (32-36); Mean Corpuscular Hemoglobin 33.9 pg (26-34); Mean Corpuscular Volume 98.8 fl (80-100); Platelet Count Result 264 k/mm3 (150-375); Red Blood Count 4.16 M/mm3 (4.6-6.20); Red Cell Distribution Width 12.1 % (11.5-14.5); White Blood Count 6.9 K/mm3 (4.5-10.0)
[2024-02-11 10:35] LABS: Alanine Aminotransferase 20 U/L (6-50); Albumin Level 4.5 g/dL (3.5-5.1); Alkaline Phosphatase 40 U/L (38-126); Anion Gap 9 mmol/L (4-12); Aspartate Amino Transferase 30 U/L (17-59); Bilirubin,Total 0.4 mg/dL (0.2-1.3); Blood Urea Nitrogen 15 mg/dL (9-20); CRP < 0.5 mg/dL (<1.0); Calcium 9.5 mg/dL (8.4-10.2); Carbon Dioxide 29 mmol/L (22-30); Chloride 99 mmol/L (98-107); Estimated Glomerular Filt Rate > 60; Glucose 112 mg/dL (65-110); Potassium 3.5 mmol/L (3.4-5.0); Sodium 137 mmol/L (137-145)
[2024-02-11 10:49] LABS: Erythrocyte Sedimentation Rate 21 mm/hr (0-20)
[2024-02-17 01:54] LABS: Calprotectin, Stool 2550 mcg/g
== END 2024-02-11 10:03 | disposition home or self-care (01) ==
PROVIDERS: PCP Physician Assistant Medical; Visit Provider Internal Medicine Gastroenterology
DX: K51.50 Left sided colitis without complications (principal); K57.30 Diverticulosis of large intestine without perforation or abscess without bleeding
CPT/HCPCS: 36415; 80053; 83993; 85027; 85652; 86140